=== PATIENT | female | born 1960 | race Caucasian/White ===

== ENCOUNTER 2017-05-05 15:56 | Emergency (ER) | payer OTHER ==
[~2017-05-05] VITALS: Ht 167.6 cm; Wt 70.3 kg
[2017-05-05 17:44] LABS: INFLUENZA A ANTIGEN None Detected (None Detect); INFLUENZA B ANTIGEN None Detected (None Detect)
[2017-05-05] MEDS ORDERED: PROAIR HFA8.5 GM INH (17:52)
[2017-05-05] MEDS ORDERED: ZOFRAN4 MG PO (17:52)
[2017-05-05 18:24] VITALS: BP 131/48
== END 2017-05-05 18:26 | disposition home or self-care (01) ==
LOC: M.ERS 15:56
PROVIDERS: Nurse Practitioner Family
DX: J11.1 Influenza due to unidentified influenza virus with other respiratory manifestations (principal); K21.9 Gastro-esophageal reflux disease without esophagitis; E78.00 Pure hypercholesterolemia, unspecified; Z90.89 Acquired absence of other organs; Z88.6 Allergy status to analgesic agent